=== PATIENT | female | born 1925 | race Caucasian/White ===

== ENCOUNTER 2016-04-25 09:18 | Day surgery (SDC) | payer MEDICARE, BC ==
[~2016-04-25] VITALS: Ht 165.1 cm
--- NOTE | 2016-04-27 08:09 | OR ---
ADMIT: 04/25/2016 RM/LOC: [facility] MR#: [id number] [address] [place] [address] Operative/Delivery Room Report SEX: F AGE: 89 : 1925 SURGERY DATE: 04/25/2016 SURGEON: Dayana Archer MD MANAGER IMMUNOLOGY: None. PREOPERATIVE DIAGNOSES: 1. Left hip arthritis. 2. Left hip pain. POSTOPERATIVE DIAGNOSES: 1. Left hip arthritis. 2. Left hip pain. PROCEDURE PERFORMED: Left hip injection, anterior approach. INDICATIONS FOR PROCEDURE: The patient is a pleasant female with history of chronic left hip pain secondary to above mentioned diagnoses, comes here for planned hip injection. ANESTHESIA: Local without sedation. ESTIMATED BLOOD LOSS: Zero. COMPLICATIONS: None immediately evident. DESCRIPTION OF PROCEDURE: After the patient was seen in the preoperative area, vitals signs were taken. Prior to the procedure, the risks, benefits, and alternative therapies were discussed at length. The patient's consent was obtained and updated. The patient was taken to the fluoroscopy suite and placed on the fluoroscopy table in the prone position. Pressure points were padded to comfort, monitors applied, and a time-out performed. C-arm was brought in to identify the left hip joint. Lidocaine plain 1%, approximately 1 mL, was used to anesthetize the skin and underlying subcutaneous tissue. A 3.5-inch 22-gauge curved-tip spinal needle was then advanced through the anesthetized skin and placed into the neck of left femur. Isovue-300 was injected and the joint spread was noted. After correct placement was confirmed, 5 mL of 0.25% bupivacaine and 80 mg of Depo-Medrol were injected. The patient tolerated the procedure well without any complication. The patient was brought to PACU, where the patient recovered nicely. The patient was examined afterwards and had 80% reduction of pain. Dayana Archer MD/ dk JOB #: [id number] CC: Dayana Archer, Attending Physician ADMIT: 04/25/2016 RM/LOC: [facility] MR#: [id number] [address] [address] [place] [address] Operative/Delivery Room Report SEX: F AGE: 89 : 1925 Jasvir Quijano [facility] Phys[facility]
== END 2016-04-25 11:15 | disposition home or self-care (01) ==
LOC: SSS 09:18
DX: G89.29 Other chronic pain (principal); M16.12 Unilateral primary osteoarthritis, left hip; E03.9 Hypothyroidism, unspecified; I10 Essential (primary) hypertension; E11.9 Type 2 diabetes mellitus without complications; Z79.899 Other long term (current) drug therapy